=== PATIENT | male | born 1945 | race Caucasian/White ===

== ENCOUNTER 2021-09-09 20:39 | Inpatient (IN) | payer MEDICARE, BC ==
--- NOTE | 2021-09-09 20:31 | EDM.PDOC ---
ED HPI GENERAL MEDICAL PROBLEM - General Chief Complaint: General Stated Complaint: AMBULANCE Time Seen by Provider: 09/09/21 20:22 - History of Present Illness INITIAL COMMENTS - FREE TEXT/NARRATIVE: EMS was called for a pt who passed out while sitting at the dining table and fell forward hitting his head. He did tell EMS he was feeling a little lightheaded prior the event. He remembers sitting at the table and was a little confused after. LOC was about 4 minutes per report. He did cut his forehead open on the table. He does take coumadin and has a history of atrial fibrillation. Pt went to CT on arrival. Pt reports he was short of breath prior to fainting. He has been getting more short of breath over the last several months and has been struggling even when walking with his walker. He has known parkinsons and denies any weakness or speech changes from his baseline. He recently had a UTI but thinks he has finished his medicine. He denies any fevers or chills. No recent illnesses. No pain other than his head where he has a laceration from hitting it. - Related Data Allergies Allergy/AdvReac Type Severity Reaction Status Date / Time latex Allergy Rash Verified 09/09/21 21:24 Home Meds: Home Meds Acetaminophen 1,000 mg PO Q6HR PRN 09/09/21 [History] Carbidopa/Levodopa [Sinemet 25-100 mg Tablet] 2 each PO ASDIRECTED 09/09/21 [History] Carbidopa/Levodopa/Entacapone [Carbidopa-Levodopa 50 mg-Enta] 1 each PO DAILY 09/09/21 [History] Carboxymethylcell/Hypromellose [GenTeal 0.25-0.3% Gel Drops] 1 drop EYEBOTH BEDTIME 09/09/21 [History] Carboxymethylcellulose Sodium [Refresh Tears 0.5%] 1 drop EYEBOTH QID 09/09/21 [History] Donepezil [Aricept] 10 mg PO BEDTIME 09/09/21 [History] Furosemide [Lasix] 40 mg PO DAILY 09/09/21 [History] Loperamide [Imodium] 2 mg PO Q8HR PRN 09/09/21 [History] Magnesium Hydroxide [Milk of Magnesia] 30 ml PO DAILY PRN 09/09/21 [History] Melatonin 5 mg PO BEDTIME 09/09/21 [History] Metoprolol Tartrate 25 mg PO BID 09/09/21 [History] Nitroglycerin 0.4 mg SL ASDIRECTED PRN 09/09/21 [History] Ondansetron [Zofran ODT] 4 mg PO Q8HR PRN 09/09/21 [History] Phytonadione [Vitamin K] 100 mcg PO DAILY 09/09/21 [History] QUEtiapine [SEROquel] 50 mg PO BEDTIME 09/09/21 [History] Tamsulosin HCl [Flomax] 0.8 mg PO DAILY 09/09/21 [History] Warfarin [Coumadin] 2.5 mg PO .MWF 09/09/21 [History] Warfarin [Coumadin] 5 mg PO .TUETHURSATSUN 09/09/21 [History] lisinopriL [Lisinopril] 40 mg PO DAILY 09/09/21 [History] polyethylene glycoL 3350 [MiraLAX] 17 gm PO ASDIRECTED 09/09/21 [History] ED ROS GENERAL - Review of Systems Review Of Systems: Comprehensive ROS is negative, except as noted in HPI. ED EXAM, GENERAL - Physical Exam Exam: See Below Exam Limited By: No Limitations General Appearance: Alert, No Apparent Distress Eye Exam: Bilateral Eye: Normal Inspection Ears: Normal External Exam Throat/Mouth: No Airway Compromise Head: Normocephalic, Other (facial laceration) Neck: Normal Inspection, Supple, Non-Tender Respiratory/Chest: No Respiratory Distress, Lungs Clear, Normal Breath Sounds, No Accessory Muscle Use Cardiovascular: Normal Peripheral Pulses, Regular Rate, Rhythm, Systolic Murmur GI/Abdominal: Soft, No Distention (Male) Exam: Deferred Rectal (Males) Exam: Deferred Back Exam: Normal Inspection Extremities: Normal Inspection, Normal Range of Motion, No Pedal Edema Neurological: Alert, Oriented, Normal Cognition Psychiatric: Normal Affect, Normal Mood Skin Exam: Warm, Dry, Other (laceration on his right forehead in his eyebrow about 3.4 cm in length and gaping about 1.5 cm with a y-extension on the medial aspect, laceration on the top of his head about 1.5 cm in length) Lymphatic: No Adenopathy ED GENERAL MEDICAL PROCEDURES - Laceration/Wound Repair Right Face Lac/wound length in cm: 3.4 (with 0.75 y-extension) Appearance: Subcutaneous Distal NVT: Neuro & Vascular Intact Anesthetic Type: Local Local Anesthesia - Lidocaine (Xylocaine): 1% with EPI Local Anesthetic Volume: 5cc Skin Prep: Chlorhexidine (Hibiciens) Exploration/Debridement/Repair: Wound Explored, Explored to Base, No Foreign Material Found Closed with: Sutures Suture Size: 6-0 # of Sutures: 6 (5 in long section, 1 in y-extension) Suture Type: Nylon, Interrupted, Simple Sterile Dressing Applied: Nurse Tetanus Status Addressed: Yes Complications: No [place] Lac/wound length in cm: 1.5 Appearance: Subcutaneous Distal NVT: Neuro & Vascular Intact Anesthetic Type: Local Local Anesthesia - Lidocaine (Xylocaine): 1% with EPI Local Anesthetic Volume: 2cc Skin Prep: Chlorhexidine (Hibiciens) Exploration/Debridement/Repair: Wound Explored, Explored to Base, No Foreign Material Found Closed with: Sutures Suture Size: 3-0 # of Sutures: 1 Suture Type: Nylon, Interrupted, Simple Sterile Dressing Applied: Nurse Tetanus Status Addressed: Yes Complications: No #1 Interpretation EKG Date: 09/09/21 Time: 20:38 Rhythm: A-Fib [place]: RAD-Right [place] Deviation P-Wave: Variable QRS: Normal ST-T: Normal QT: Normal #2 Interpretation EKG Date: 09/10/21 Time: 00:32 Rhythm: A-Fib [place]: RAD-Right [place] Deviation P-Wave: Variable QRS: Normal ST-T: Normal QT: Normal Comparison: No Change Course - Vital Signs Last Recorded V/S: Last Vital Signs Temp 96.9 F 09/09/21 20:30 Pulse 72 09/09/21 22:17 Resp 14 09/09/21 22:17 BP 148/109 H 09/09/21 22:17 Pulse Ox 93 L 09/09/21 22:17 - Orders/Labs/Meds Orders: Active Orders 24 hr Category Date Time Status CULTURE BLOOD [BC] Stat Lab 09/09/21 22:09 Received CULTURE BLOOD [BC] Stat Lab 09/09/21 22:13 Received Ozuna [CORONAVIRUS COVID-19 PARAMJIT] [MOLEC] Stat Lab 09/10/21 00:59 Ordered PTT,PARTIAL THROMBOPLSTIN TIME [COAG] Q6H Lab 09/10/21 00:45 Ordered PTT,PARTIAL THROMBOPLSTIN TIME [COAG] Q6H Lab 09/10/21 06:45 Ordered PTT,PARTIAL THROMBOPLSTIN TIME [COAG] Q6H Lab 09/10/21 12:45 Ordered PTT,PARTIAL THROMBOPLSTIN TIME [COAG] Q6H Lab 09/10/21 18:45 Ordered PTT,PARTIAL THROMBOPLSTIN TIME [COAG] Q6H Lab 09/11/21 00:45 Ordered PTT,PARTIAL THROMBOPLSTIN TIME [COAG] Q6H Lab 09/11/21 06:45 Ordered PTT,PARTIAL THROMBOPLSTIN TIME [COAG] Q6H Lab 09/11/21 12:45 Ordered TROPONIN I HIGH SENSITIVITY [CHEM] Timed Lab 09/10/21 06:00 Ordered UA RFX LUCINDA AND CULT IF INDIC [URIN] Stat Lab 09/09/21 20:47 Ordered Heparin Sodium/0.45% NaCl [Heparin 25,000 Units in 1/2 Med 09/10/21 00:45 Active NS 500 ML] 25,000 units in 500 ml IV TITRATE Sodium Chloride 0.9% [Normal Saline] 1,000 ml Med 09/09/21 21:00 Active IV ASDIRECTED Blood Culture x2 Reflex Set [OM.PC] Stat Oth 09/09/21 20:46 Ordered Medication Orders Sodium Chloride (Normal Saline) 1,000 mls @ 500 mls/hr IV ASDIRECTED FATMATA Last Admin: 09/09/21 20:59 Dose: 500 mls/hr Documented by: CHERY Heparin Sodium/Sodium Chloride (Heparin 25,000 Units In 1/2 Ns 500 Ml) 25,000 units in 500 mls @ 20 mls/hr IV TITRATE FATMATA; Protocol Last Admin: 09/10/21 00:41 Dose: 1,000 units/hr, 20 mls/hr Documented by: FREDY Cosigned by: CHERY Labs: Laboratory Tests 09/09/21 09/09/21 09/09/21 Range/Units 20:51 20:51 20:51 WBC 5.4 (5.0-10.0) 10^3/uL RBC 4.17 L (4.6-6.2) 10^6/uL Hgb 14.4 (14.0-18.0) g/dL Hct 42.3 (40.0-54.0) % MCV 101.4 H (80-100) fL MCH 34.5 H (27.0-34.0) pg MCHC 34.0 (33.0-35.0) g/dL Plt Count 157 (150-450) 10^3/uL Neut % (Auto) 79.9 H (42.2-75.2) % Lymph % (Auto) 9.1 L (20.5-50.1) % Hendry % (Auto) 9.9 H (2-8) % Eos % (Auto) 0.9 L (1.0-3.0) % Baso % (Auto) 0.2 (0.0-1.0) % PT 23.4 H (9.0-12.0) SEC INR 2.4 H (0.9-1.2) APTT 29.7 (22.0-34.0) SEC Sodium 141 (136-145) mmol/L Potassium 3.8 (3.5-5.1) mmol/L Chloride 104 (98-107) mmol/L Carbon Dioxide 20 L (21-32) mmol/L Anion Gap 20.8 H (7-13) mEq/L BUN 26 H (7-18) mg/dL Creatinine 1.31 H (0.70-1.30) mg/dL Est Cr Clr Drug Dosing 52.65 mL/min Estimated GFR (MDRD) 53 BUN/Creatinine Ratio 19.8 (No establ ref range) Glucose 181 H (70-99) mg/dL Lactic Acid (0.4-2.0) mmol/L Calcium 8.5 (8.5-10.1) mg/dL Total Bilirubin 0.9 (0.2-1.0) mg/dL AST 16 (15-37) U/L ALT 7 L (16-63) U/L Alkaline Phosphatase 173 H (46-116) U/L Troponin I High Sens 149 H* (<=76) pg/mL Total Protein 7.4 (6.4-8.2) g/dL Albumin 3.4 (3.4-5.0) g/dL Globulin 4.0 Albumin/Globulin Ratio 0.9 09/09/21 09/09/21 09/09/21 Range/Units 20:51 23:55 23:55 WBC (5.0-10.0) 10^3/uL RBC (4.6-6.2) 10^6/uL Hgb (14.0-18.0) g/dL Hct (40.0-54.0) % MCV (80-100) fL MCH (27.0-34.0) pg MCHC (33.0-35.0) g/dL Plt Count (150-450) 10^3/uL Neut % (Auto) (42.2-75.2) % Lymph % (Auto) (20.5-50.1) % Hendry % (Auto) (2-8) % Eos % (Auto) (1.0-3.0) % Baso % (Auto) (0.0-1.0) % PT (9.0-12.0) SEC INR (0.9-1.2) APTT (22.0-34.0) SEC Sodium (136-145) mmol/L Potassium (3.5-5.1) mmol/L Chloride (98-107) mmol/L Carbon Dioxide (21-32) mmol/L Anion Gap (7-13) mEq/L BUN (7-18) mg/dL Creatinine (0.70-1.30) mg/dL Est Cr Clr Drug Dosing mL/min Estimated GFR (MDRD) BUN/Creatinine Ratio (No establ ref range) Glucose (70-99) mg/dL Lactic Acid 5.5 H* 2.1 H* (0.4-2.0) mmol/L Calcium (8.5-10.1) mg/dL Total Bilirubin (0.2-1.0) mg/dL AST (15-37) U/L ALT (16-63) U/L Alkaline Phosphatase (46-116) U/L Troponin I High Sens 1312 H* (<=76) pg/mL Total Protein (6.4-8.2) g/dL Albumin (3.4-5.0) g/dL Globulin Albumin/Globulin Ratio Meds: Medications Generic Name Dose Route Start Last Admin Trade Name Freq PRN Reason Stop Dose Admin Sodium Chloride 1,000 mls @ 500 mls/hr 09/09/21 21:00 09/09/21 20:59 Normal Saline IV 500 mls/hr ASDIRECTED FATMATA Administration Heparin Sodium/Sodium Chloride 25,000 units in 500 mls @ 20 mls/hr 09/10/21 00:45 09/10/21 00:41 Heparin 25,000 Units In 1/2 Ns 500 Ml IV 1,000 units/hr TITRATE FATMATA 20 mls/hr Administration Protocol 1,000 UNITS/HR Discontinued Medications Generic Name Dose Route Start Last Admin Trade Name Denvre PRN Reason Stop Dose Admin Aspirin 324 mg 09/09/21 20:53 09/09/21 20:58 Aspirin 81 Mg Tab.Chew PO 09/09/21 20:54 324 mg ONETIME ONE Administration Clopidogrel Bisulfate 300 mg 09/10/21 00:32 09/10/21 00:48 Clopidogrel 75 Mg Tab PO 09/10/21 00:33 300 mg ONETIME ONE Administration Heparin Sodium (Porcine) 4,000 units 09/10/21 00:31 09/10/21 00:40 Heparin Sodium 5,000 Units/Ml Vial IVPUSH 09/10/21 00:32 4,000 units .BOLUS ONE Administration Lidocaine/Epinephrine 20 ml 09/09/21 22:57 09/09/21 23:05 Lidocaine 1% With Epinephrine 1:100,000 20 Ml Mdv INJECT 09/09/21 22:58 20 ml ONETIME ONE Administration Metoclopramide HCl 10 mg 09/09/21 20:32 09/09/21 20:40 Metoclopramide 10 Mg/2 Ml Sdv IVPUSH 09/09/21 20:33 10 mg ONETIME ONE Administration Metoclopramide HCl Confirm 09/09/21 20:32 09/09/21 20:40 Metoclopramide 10 Mg/2 Ml Sdv Administered 09/09/21 20:33 Not Given Dose 10 mg .ROUTE .STK-MED ONE Nitroglycerin 0.4 mg 09/09/21 20:53 09/09/21 20:58 Nitroglycerin 0.4 Mg Tab.Sl SL 09/09/21 20:54 0.4 mg ONETIME ONE Administration - Re-Assessments/Exams Free Text/Narrative Re-Assessment/Exam: Patient reported new onset pressure like chest pain in the center of his chest. He was given aspirin and nitroglycerin and reports his pain is getting better. 09/09/21 21:29 CT head report shows age-indeterminate burst fracture of C1. Previous C-spine imaging reviewed from 2007, not present at that time. Pt reports he has always had problems with his neck. CT c-spine ordered. Pt reports his chest pain is gone. Troponin came back slightly elevated at 149 and lactic acid was 5.5. 09/09/21 21:45 Repeat troponin increased to 1312. Heparin bolus and drip as well as plavix orde red. EKG still without ST changes. Contacted [facility] who put him on the waiting list for NSTEMI. [facility] hospitalist contacted and declines admission at time stating he needs to be transferred out. [facility] transfer line reports all facilities are full. Spoke with Neurosurgery psychologist educational from [facility] about his C1 fracture on CT. He agrees is it chronic and notes that his neck has been manipulated in the recent past without complication and feels like it is stable and he can be removed from the c-collar. Pt hemodynamically stable. Will remain in the ER while awaiting transfer. 09/10/21 00:46 [facility] hospitalist called back. Informed there are no beds available in the [facility] [place]. Case discussed and pt was accepted for admission. 09/10/21 03:16 Departure - Departure Time of Disposition: 03:18 Disposition: Admitted As Inpatient 66 Condition: Serious Clinical Impression: NSTEMI (non-ST elevated myocardial infarction) - Discharge Information *PRESCRIPTION DRUG MONITORING PROGRAM REVIEWED*: Not Applicable *COPY OF PRESCRIPTION DRUG MONITORING REPORT IN PATIENT HARSHAL: Not Applicable Forms: ED Department Discharge Sepsis Event Note (ED) - Focused Exam Vital Signs: Vital Signs Temp Pulse Resp BP BP Pulse Ox 09/09/21 22:17 72 14 148/109 H 93 L 09/09/21 20:58 149/95 H 09/09/21 20:30 96.9 F 82 20 149/104 H 95 - My Orders Last 24 Hours: My Active Orders 09/09/21 20:46 Blood Culture x2 Reflex Set [OM.PC] Stat 09/09/21 20:47 UA RFX LUCINDA AND CULT IF INDIC [URIN] Stat 09/09/21 21:00 Sodium Chloride 0.9% [Normal Saline] 1,000 ml IV ASDIRECTED 09/09/21 22:09 CULTURE BLOOD [BC] Stat 09/09/21 22:13 CULTURE BLOOD [BC] Stat 09/10/21 00:45 PTT,PARTIAL THROMBOPLSTIN TIME [COAG] Q6H Heparin Sodium/0.45% NaCl [Heparin 25,000 Units in 1/2 NS 500 ML] 25,000 units in 500 ml IV TITRATE 09/10/21 00:59 Ozuna [CORONAVIRUS COVID-19 PARAMJIT] [MOLEC] Stat 09/10/21 06:00 TROPONIN I HIGH SENSITIVITY [CHEM] Timed 09/10/21 06:45 PTT,PARTIAL THROMBOPLSTIN TIME [COAG] Q6H 09/10/21 12:45 PTT,PARTIAL THROMBOPLSTIN TIME [COAG] Q6H 09/10/21 18:45 PTT,PARTIAL THROMBOPLSTIN TIME [COAG] Q6H 09/11/21 00:45 PTT,PARTIAL THROMBOPLSTIN TIME [COAG] Q6H 09/11/21 06:45 PTT,PARTIAL THROMBOPLSTIN TIME [COAG] Q6H 09/11/21 12:45 PTT,PARTIAL THROMBOPLSTIN TIME [COAG] Q6H - Assessment/Plan Last 24 Hours: My Active Orders 09/09/21 20:46 Blood Culture x2 Reflex Set [OM.PC] Stat 09/09/21 20:47 UA RFX LUCINDA AND CULT IF INDIC [URIN] Stat 09/09/21 21:00 Sodium Chloride 0.9% [Normal Saline] 1,000 ml IV ASDIRECTED 09/09/21 22:09 CULTURE BLOOD [BC] Stat 09/09/21 22:13 CULTURE BLOOD [BC] Stat 09/10/21 00:45 PTT,PARTIAL THROMBOPLSTIN TIME [COAG] Q6H Heparin Sodium/0.45% NaCl [Heparin 25,000 Units in 1/2 NS 500 ML] 25,000 units in 500 ml IV TITRATE 09/10/21 00:59 Ozuna [CORONAVIRUS COVID-19 PARAMJIT] [MOLEC] Stat 09/10/21 06:00 TROPONIN I HIGH SENSITIVITY [CHEM] Timed 09/10/21 06:45 PTT,PARTIAL THROMBOPLSTIN TIME [COAG] Q6H 09/10/21 12:45 PTT,PARTIAL THROMBOPLSTIN TIME [COAG] Q6H 09/10/21 18:45 PTT,PARTIAL THROMBOPLSTIN TIME [COAG] Q6H 09/11/21 00:45 PTT,PARTIAL THROMBOPLSTIN TIME [COAG] Q6H 09/11/21 06:45 PTT,PARTIAL THROMBOPLSTIN TIME [COAG] Q6H 09/11/21 12:45 PTT,PARTIAL THROMBOPLSTIN TIME [COAG] Q6H
[~2021-09-09 20:39] MED LIST: Metoclopramide 10 MG/2 ML SDV IVPUSH ONE; Metoclopramide 10 MG/2 ML SDV ONE
[2021-09-09] MEDS ORDERED: Nitroglycerin 0.4 MG Tab.SL SL ONE (20:53)
[2021-09-09] MEDS ORDERED: Aspirin 81 MG Tab.Chew PO ONE (20:53)
[2021-09-09] MEDS ORDERED: Sodium Chloride 0.9% 1,000 ML IV SCH (21:00)
--- NOTE | 2021-09-09 21:01 | CT ---
PROCEDURE INFORMATION: Exam: CT Head Without Contrast Exam date and time: 09/09/2021 8:27 PM Age: 76 years old Clinical indication: Other: Fell forward out of chair--hit head, altered mentation; Additional info: Unresponsive episode, blood thinner TECHNIQUE: Imaging protocol: Computed tomography of the head without contrast. Radiation optimization: All CT scans at this facility use at least one of these dose optimization techniques: automated exposure control; mA and/or kV adjustment per patient size (includes targeted exams where dose is matched to clinical indication); or iterative reconstruction. Other technique: STROKE PROTOCOL was implemented. COMPARISON: No relevant prior studies available. FINDINGS: Brain: There is mild amount of scattered areas of hypoattenuation of the supratentorial white matter, most likely secondary to microvascular ischemic changes. No acute intracranial hemorrhage. Cerebral ventricles: No ventriculomegaly. Paranasal sinuses: Visualized sinuses are unremarkable. No fluid levels. Mastoid air cells: Visualized mastoid air cells are well aerated. 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 There is an age-indeterminate burst fracture of C1 vertebral body which is incompletely assessed on this examination Soft tissues: Unremarkable. IMPRESSION: No acute intracranial process. Age-indeterminate burst fracture of C1. A CT of the cervical spine is advised to further characterize, especially given history of trauma. ASSESSMENT: ASPECTS ([facility] Stroke Program Early CT Score) is 10.
[2021-09-09 21:21] LABS: PTT,PARTIAL THROMBOPLSTIN TIME 29.7 SEC (22.0-34.0)
[2021-09-09 21:24] LABS: ANION GAP 20.8 mEq/L (7-13)
--- NOTE | 2021-09-09 21:36 | CR ---
PROCEDURE INFORMATION: Exam: XR Chest Exam date and time: 09/09/2021 9:15 PM Age: 76 years old Clinical indication: Other: Syncope; Additional info: Fainting TECHNIQUE: Imaging protocol: XR of the chest. Views: 1 view. COMPARISON: No relevant prior studies available. FINDINGS: Lungs: There is diffuse mild nonspecific prominence of the subpleural pulmonary interstitium. No focal consolidation. Pleural spaces: Unremarkable. No pleural effusion. No pneumothorax. Heart/Mediastinum: There is cardiomegaly Bones/joints: Unremarkable. IMPRESSION: Interstitial prominence is nonspecific, possibly representing bronchitis. Cardiomegaly
--- NOTE | 2021-09-09 22:20 | CT ---
PROCEDURE INFORMATION: Exam: CT Cervical Spine Without Contrast Exam date and time: 09/09/2021 9:57 PM Age: 76 years old Clinical indication: Other: Rad was concerned about c1 off the head scan; Additional info: C1 fracture TECHNIQUE: Imaging protocol: Computed tomography images of the cervical spine without contrast. Radiation optimization: All CT scans at this facility use at least one of these dose optimization techniques: automated exposure control; mA and/or kV adjustment per patient size (includes targeted exams where dose is matched to clinical indication); or iterative reconstruction. COMPARISON: CT Head wo Cont 09/09/2021 8:27 PM FINDINGS: Bones/joints: No acute fracture. 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 Flattening of lateral masses of C1, left greater than right with resultant basilar invagination. Grade 1 anterolisthesis C5 on C6. No traumatic dislocation. Discs/Spinal canal/Neural foramina: No significant spinal stenosis. IMPRESSION: No acute fracture or dislocation. 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
[2021-09-09] MEDS ORDERED: Lidocaine 1% with EPINEPHrine 1:100,000 20 ML MDV INJECT ONE (22:57)
[2021-09-10] MEDS ORDERED: Heparin Sodium 5,000 Units/ML Vial IVPUSH ONE (00:31)
[2021-09-10] MEDS ORDERED: Clopidogrel 75 MG Tab PO ONE (00:32)
[2021-09-10] MEDS ORDERED: Heparin Sodium/0.45% NaCl 25,000 UNITS/500 ML BAG IV SCH (00:45)
[2021-09-10] MEDS ORDERED: Ondansetron 4 MG Tab.DIS PO PRN (04:33)
[2021-09-10] MEDS ORDERED: Loperamide 2 MG Cap PO PRN (04:33)
[2021-09-10] MEDS ORDERED: Nitroglycerin 0.4 MG Tab.SL SL PRN (04:33)
[2021-09-10] MEDS ORDERED: Magnesium Hydroxide 400 MG/5 ML Susp 30 ML Cup PO PRN (04:33)
[2021-09-10] MEDS ORDERED: Acetaminophen 500 MG Tab PO PRN (04:33)
[2021-09-10] MEDS ORDERED: atorvaSTATin 20 MG Tab PO ONE (04:38)
[2021-09-10] MEDS ORDERED: Docusate Sodium 100 MG Cap PO PRN (04:42)
[2021-09-10] MEDS ORDERED: Bisacodyl 5 MG Tab PO PRN (04:42)
[2021-09-10] MEDS ORDERED: Ondansetron 4 MG/2 ML SDV IVPUSH PRN (04:42)
--- NOTE | 2021-09-10 04:57 | PCM.HP ---
H&P History of Present Illness - General Date of Service: 09/10/21 Admit Problem/Dx: Admission Diagnosis/Problem Admission Diagnosis/Problem NSTEMI, initial episode of care Source of Information: Provider (ER) History Limitations: Reports: Other (pt is sleeping) - History of Present Illness Initial Comments - Free Text/Narative: As per ER , EMS was called for a pt who passed out while sitting at the dining table and fell forward hitting his head. He did tell EMS he was feeling a little lightheaded prior the event. He remembers sitting at the table and was a little confused after. LOC was about 4 minutes per report. He did cut his forehead open on the table. He does take coumadin and has a history of atrial fibrillation. Pt went to CT on arrival. Pt reported he was shorted of breath prior to fainting. He has been getting more short of breath over the last several months and has been struggling even when walking with his walker. He has known parkinsons and denies any weakness or speech changes from his baseline. He recently had a UTI but thinks he has finished his medicine. He denies any fevers or chills. No recent illnesses. No pain other than his head where he has a laceration from hitting it. Patient reported new onset pressure like chest pain in the center of his chest. He was given aspirin and nitroglycerin and his pain improved. CT head report shows age-indeterminate burst fracture of C1. Previous C-spine imaging reviewed from 2007, not present at that time. Pt reports he has always had problems with his neck. CT c-spine ordered. Troponin came back slightly elevated at 149 and lactic acid was 5.5. Repeat troponin increased to 1312. Heparin bolus and drip as well as plavix ordered by ER. EKG still without ST changes. [facility] was contacted by ER who put him on the waiting list for NSTEMI. [facility] transfer line reported to ER that all facilities are full. Neurosurgery web consultant from [facility] was contacted by ER about his C1 fracture on CT. It was felt that it is chronic and the c-collar was removed Pt had two laceration to his head and they were sutured by ER. Pt remained hemodynamically stable in the ER and was accepted for admission awaiting beds available in the [facility].. - Related Data Allergies/Adverse Reactions: Allergies Allergy/AdvReac Type Severity Reaction Status Date / Time latex Allergy Rash Verified 09/09/21 21:24 Home Medications: Home Meds Acetaminophen 1,000 mg PO Q6HR PRN 09/09/21 [History] Carbidopa/Levodopa [Sinemet 25-100 mg Tablet] 2 each PO ASDIRECTED 09/09/21 [History] Carbidopa/Levodopa/Entacapone [Carbidopa-Levodopa 50 mg-Enta] 1 each PO DAILY 09/09/21 [History] Carboxymethylcell/Hypromellose [GenTeal 0.25-0.3% Gel Drops] 1 drop EYEBOTH BEDTIME 09/09/21 [History] Carboxymethylcellulose Sodium [Refresh Tears 0.5%] 1 drop EYEBOTH QID 09/09/21 [History] Donepezil [Aricept] 10 mg PO BEDTIME 09/09/21 [History] Furosemide [Lasix] 40 mg PO DAILY 09/09/21 [History] Loperamide [Imodium] 2 mg PO Q8HR PRN 09/09/21 [History] Magnesium Hydroxide [Milk of Magnesia] 30 ml PO DAILY PRN 09/09/21 [History] Melatonin 5 mg PO BEDTIME 09/09/21 [History] Metoprolol Tartrate 25 mg PO BID 09/09/21 [History] Nitroglycerin 0.4 mg SL ASDIRECTED PRN 09/09/21 [History] Ondansetron [Zofran ODT] 4 mg PO Q8HR PRN 09/09/21 [History] Phytonadione [Vitamin K] 100 mcg PO DAILY 09/09/21 [History] QUEtiapine [SEROquel] 50 mg PO BEDTIME 09/09/21 [History] Tamsulosin HCl [Flomax] 0.8 mg PO DAILY 09/09/21 [History] Warfarin [Coumadin] 2.5 mg PO .MWF 09/09/21 [History] Warfarin [Coumadin] 5 mg PO .TUETHURSATSUN 09/09/21 [History] lisinopriL [Lisinopril] 40 mg PO DAILY 09/09/21 [History] polyethylene glycoL 3350 [MiraLAX] 17 gm PO ASDIRECTED 09/09/21 [History] Past Medical History HEENT History: Reports: Hard of Hearing Cardiovascular History: Reports: Afib, CAD, High Cholesterol, Hypertension, Other (See Below) Other Cardiovascular History: Mitral Valve Insufficiency. Chronic anti-coag use Respiratory History: Reports: Sleep Apnea Genitourinary History: Reports: BPH Musculoskeletal History: Reports: Other (See Below) Other Musculoskeletal History: Intervertbral disc w/radiculopathy Neurological History: Reports: Parkinson's, Other (See Below) Other Neuro History: Dementia Psychiatric History: Reports: Dementia Dermatologic History: Reports: Other (See Below) Other Dermatologic History: Dermatitis Social & Family History - Family History Family Medical History: Unobtainable - Tobacco Use Tobacco Use Status *Q: Unknown Ever Used Tobacco - Recreational Drug Use Recreational Drug Use: No H&P Review of Systems - Review of Systems: Review Of Systems: Unable To Obtain Reason Not Obtained: Pt is sleeping , exhusted form last night events Exam - Exam Exam: See Below - Vital Signs Vital Signs: Last Vital Signs Temp 98.3 F 09/10/21 03:28 Pulse 70 09/10/21 03:28 Resp 16 09/10/21 03:28 BP 152/93 H 09/10/21 03:28 Pulse Ox 99 09/10/21 04:42 Weight: 219 lb - Exam Quality Assessment: Supplemental Oxygen General: Other (comfortable, no distress) Neck: No: JVD Lungs: Clear to Auscultation, Normal Respiratory Effort Cardiovascular: Irregular Rhythm GI/Abdominal Exam: Soft, Non-Tender (Male) Exam: Deferred Rectal (Males) Exam: Deferred Extremities: No Pedal Edema Skin: Warm, Dry, Other (sutured laceration to scalp) Neuro Extensive - Mental Status: Alert, Oriented x3 - Patient Data Lab Results Last 24 hrs: Laboratory Results - last 24 hr 09/09/21 09/09/21 09/09/21 Range/Units 20:51 20:51 20:51 WBC 5.4 (5.0-10.0) 10^3/uL RBC 4.17 L (4.6-6.2) 10^6/uL Hgb 14.4 (14.0-18.0) g/dL Hct 42.3 (40.0-54.0) % MCV 101.4 H (80-100) fL MCH 34.5 H (27.0-34.0) pg MCHC 34.0 (33.0-35.0) g/dL Plt Count 157 (150-450) 10^3/uL Neut % (Auto) 79.9 H (42.2-75.2) % Lymph % (Auto) 9.1 L (20.5-50.1) % [place] % (Auto) 9.9 H (2-8) % Eos % (Auto) 0.9 L (1.0-3.0) % Baso % (Auto) 0.2 (0.0-1.0) % PT 23.4 H (9.0-12.0) SEC INR 2.4 H (0.9-1.2) APTT 29.7 (22.0-34.0) SEC Sodium 141 (136-145) mmol/L Potassium 3.8 (3.5-5.1) mmol/L Chloride 104 (98-107) mmol/L Carbon Dioxide 20 L (21-32) mmol/L Anion Gap 20.8 H (7-13) mEq/L BUN 26 H (7-18) mg/dL Creatinine 1.31 H (0.70-1.30) mg/dL Est Cr Clr Drug Dosing 52.65 mL/min Estimated GFR (MDRD) 53 BUN/Creatinine Ratio 19.8 (No establ ref range) Glucose 181 H (70-99) mg/dL Lactic Acid (0.4-2.0) mmol/L Calcium 8.5 (8.5-10.1) mg/dL Total Bilirubin 0.9 (0.2-1.0) mg/dL AST 16 (15-37) U/L ALT 7 L (16-63) U/L Alkaline Phosphatase 173 H (46-116) U/L Troponin I High Sens 149 H* (<=76) pg/mL Total Protein 7.4 (6.4-8.2) g/dL Albumin 3.4 (3.4-5.0) g/dL Globulin 4.0 Albumin/Globulin Ratio 0.9 Urine Color (YELLOW) Urine Appearance (CLEAR) Urine pH (5.0-9.0) Ur Specific [place] (1.005-1.030) Urine Protein (NEGATIVE) Urine Glucose (UA) (NEGATIVE) Urine Ketones (NEGATIVE) Urine Occult Blood (NEGATIVE) Urine Nitrite (NEGATIVE) Urine Bilirubin (NEGATIVE) Urine Urobilinogen (0.2-1.0) mg/dL Ur Leukocyte Esterase (NEGATIVE) Urine RBC (0-5) /HPF Urine WBC (0-5/HPF) /HPF Ur Epithelial Cells (NOT SEEN) /HPF Amorphous Sediment (NOT SEEN) /HPF Urine Bacteria (0-FEW/HPF) /HPF Granular Casts (Auto) Fine Granular Casts (NOT SEEN) /LPF Urine Mucus (NOT SEEN) /LPF SARS CoV-2 RNA Rapid PARAMJIT (NEGATIVE) 09/09/21 09/09/21 09/09/21 Range/Units 20:51 23:55 23:55 WBC (5.0-10.0) 10^3/uL RBC (4.6-6.2) 10^6/uL Hgb (14.0-18.0) g/dL Hct (40.0-54.0) % MCV (80-100) fL MCH (27.0-34.0) pg MCHC (33.0-35.0) g/dL Plt Count (150-450) 10^3/uL Neut % (Auto) (42.2-75.2) % Lymph % (Auto) (20.5-50.1) % [place] % (Auto) (2-8) % Eos % (Auto) (1.0-3.0) % Baso % (Auto) (0.0-1.0) % PT (9.0-12.0) SEC INR (0.9-1.2) APTT (22.0-34.0) SEC Sodium (136-145) mmol/L Potassium (3.5-5.1) mmol/L Chloride (98-107) mmol/L Carbon Dioxide (21-32) mmol/L Anion Gap (7-13) mEq/L BUN (7-18) mg/dL Creatinine (0.70-1.30) mg/dL Est Cr Clr Drug Dosing mL/min Estimated GFR (MDRD) BUN/Creatinine Ratio (No establ ref range) Glucose (70-99) mg/dL Lactic Acid 5.5 H* 2.1 H* (0.4-2.0) mmol/L Calcium (8.5-10.1) mg/dL Total Bilirubin (0.2-1.0) mg/dL AST (15-37) U/L ALT (16-63) U/L Alkaline Phosphatase (46-116) U/L Troponin I High Sens 1312 H* (<=76) pg/mL Total Protein (6.4-8.2) g/dL Albumin (3.4-5.0) g/dL Globulin Albumin/Globulin Ratio Urine Color (YELLOW) Urine Appearance (CLEAR) Urine pH (5.0-9.0) Ur Specific [place] (1.005-1.030) Urine Protein (NEGATIVE) Urine Glucose (UA) (NEGATIVE) Urine Ketones (NEGATIVE) Urine Occult Blood (NEGATIVE) Urine Nitrite (NEGATIVE) Urine Bilirubin (NEGATIVE) Urine Urobilinogen (0.2-1.0) mg/dL Ur Leukocyte Esterase (NEGATIVE) Urine RBC (0-5) /HPF Urine WBC (0-5/HPF) /HPF Ur Epithelial Cells (NOT SEEN) /HPF Amorphous Sediment (NOT SEEN) /HPF Urine Bacteria (0-FEW/HPF) /HPF Granular Casts (Auto) Fine Granular Casts (NOT SEEN) /LPF Urine Mucus (NOT SEEN) /LPF SARS CoV-2 RNA Rapid PARAMJIT (NEGATIVE) 09/10/21 09/10/21 Range/Units 03:30 03:45 WBC (5.0-10.0) 10^3/uL RBC (4.6-6.2) 10^6/uL Hgb (14.0-18.0) g/dL Hct (40.0-54.0) % MCV (80-100) fL MCH (27.0-34.0) pg MCHC (33.0-35.0) g/dL Plt Count (150-450) 10^3/uL Neut % (Auto) (42.2-75.2) % Lymph % (Auto) (20.5-50.1) % [place] % (Auto) (2-8) % Eos % (Auto) (1.0-3.0) % Baso % (Auto) (0.0-1.0) % PT (9.0-12.0) SEC INR (0.9-1.2) APTT (22.0-34.0) SEC Sodium (136-145) mmol/L Potassium (3.5-5.1) mmol/L Chloride (98-107) mmol/L Carbon Dioxide (21-32) mmol/L Anion Gap (7-13) mEq/L BUN (7-18) mg/dL Creatinine (0.70-1.30) mg/dL Est Cr Clr Drug Dosing mL/min Estimated GFR (MDRD) BUN/Creatinine Ratio (No establ ref range) Glucose (70-99) mg/dL Lactic Acid (0.4-2.0) mmol/L Calcium (8.5-10.1) mg/dL Total Bilirubin (0.2-1.0) mg/dL AST (15-37) U/L ALT (16-63) U/L Alkaline Phosphatase (46-116) U/L Troponin I High Sens (<=76) pg/mL Total Protein (6.4-8.2) g/dL Albumin (3.4-5.0) g/dL Globulin Albumin/Globulin Ratio Urine Color Dark yellow (YELLOW) Urine Appearance Slightly cloudy (CLEAR) Urine pH 6.0 (5.0-9.0) Ur Specific [place] >= 1.030 (1.005-1.030) Urine Protein 100 H (NEGATIVE) Urine Glucose (UA) Negative (NEGATIVE) Urine Ketones Trace H (NEGATIVE) Urine Occult Blood Trace-intact H (NEGATIVE) Urine Nitrite Negative (NEGATIVE) Urine Bilirubin Negative (NEGATIVE) Urine Urobilinogen 0.2 (0.2-1.0) mg/dL Ur Leukocyte Esterase Small H (NEGATIVE) Urine RBC 5-10 H (0-5) /HPF Urine WBC 50-75 H (0-5/HPF) /HPF Ur Epithelial Cells Occasional (NOT SEEN) /HPF Amorphous Sediment Few (NOT SEEN) /HPF Urine Bacteria Few (0-FEW/HPF) /HPF Granular Casts (Auto) Occasional Fine Granular Casts Few H (NOT SEEN) /LPF Urine Mucus Few H (NOT SEEN) /LPF SARS CoV-2 RNA Rapid PARAMJIT Negative (NEGATIVE) Result Diagrams: 09/09/21 20:51 09/09/21 20:51 Imaging Impressions Last 24 hrs: ECG X 2 reviewed> Afib with no ST elevation. reports of CXR and Ct brain and CT cervical spine: were reviewed Problem List Initiated/Reviewed/Updated: No Orders Last 24hrs: Active Orders 24 hr Category Date Time Status Admission Diagnosis [ADT] Routine ADT 09/10/21 03:18 Ordered Admission Status [Patient Status] [ADT] Routine ADT 09/10/21 03:18 Active Cardiac Monitoring [RC] CONTINUOUS Care 09/10/21 04:43 Ordered EKG 12 Lead [EKG Documentation Completion] [RC] DAILY Care 09/10/21 07:00 Ordered Height and Weight [RC] DAILY Care 09/10/21 04:42 Ordered Intake and Output [RC] QSHIFT Care 09/10/21 04:43 Ordered Oxygen Therapy [RC] PRN Care 09/10/21 04:42 Ordered Up With Assistance [RC] ASDIRECTED Care 09/10/21 04:42 Ordered VTE/DVT Education [RC] PER UNIT ROUTINE Care 09/10/21 04:42 Ordered Vital Signs [RC] Q4H Care 09/10/21 04:42 Ordered Heart Healthy Diet [DIET] Diet 09/10/21 Breakfast Ordered BASIC METABOLIC PANEL,BMP [CHEM] Routine Lab 09/11/21 04:47 Ordered CBC WITH AUTO DIFF [HEME] DAILY Lab 09/11/21 04:46 Ordered CULTURE BLOOD [BC] Stat Lab 09/09/21 22:09 Received CULTURE BLOOD [BC] Stat Lab 09/09/21 22:13 Received CULTURE URINE [RM] Stat Lab 09/10/21 03:45 Received INR,PT,PROTHROMBIN TIME [COAG] AM Lab 09/11/21 05:11 Ordered INR,PT,PROTHROMBIN TIME [COAG] AM Lab 09/12/21 05:11 Ordered INR,PT,PROTHROMBIN TIME [COAG] AM Lab 09/13/21 05:11 Ordered INR,PT,PROTHROMBIN TIME [COAG] AM Lab 09/14/21 05:11 Ordered INR,PT,PROTHROMBIN TIME [COAG] AM Lab 09/15/21 05:11 Ordered INR,PT,PROTHROMBIN TIME [COAG] AM Lab 09/16/21 05:11 Ordered INR,PT,PROTHROMBIN TIME [COAG] AM Lab 09/17/21 05:11 Ordered INR,PT,PROTHROMBIN TIME [COAG] Routine Lab 09/10/21 04:35 Ordered PTT,PARTIAL THROMBOPLSTIN TIME [COAG] Q6H Lab 09/10/21 00:45 Ordered PTT,PARTIAL THROMBOPLSTIN TIME [COAG] Q6H Lab 09/10/21 06:45 Ordered PTT,PARTIAL THROMBOPLSTIN TIME [COAG] Q6H Lab 09/10/21 12:45 Ordered PTT,PARTIAL THROMBOPLSTIN TIME [COAG] Q6H Lab 09/10/21 18:45 Ordered PTT,PARTIAL THROMBOPLSTIN TIME [COAG] Q6H Lab 09/11/21 00:45 Ordered PTT,PARTIAL THROMBOPLSTIN TIME [COAG] Q6H Lab 09/11/21 06:45 Ordered PTT,PARTIAL THROMBOPLSTIN TIME [COAG] Q6H Lab 09/11/21 12:45 Ordered TROPONIN I HIGH SENSITIVITY [CHEM] AM Lab 09/10/21 05:11 Ordered TROPONIN I HIGH SENSITIVITY [CHEM] AM Lab 09/11/21 05:11 Ordered TROPONIN I HIGH SENSITIVITY [CHEM] AM Lab 09/12/21 05:11 Ordered TROPONIN I HIGH SENSITIVITY [CHEM] AM Lab 09/13/21 05:11 Ordered TROPONIN I HIGH SENSITIVITY [CHEM] Timed Lab 09/10/21 06:00 Ordered Acetaminophen [Tylenol Extra Strength] Med 09/10/21 04:33 Ordered 1,000 mg PO Q6HR PRN Aspirin Med 09/10/21 21:00 Ordered 81 mg PO BEDTIME Carbidopa/Levodopa [Sinemet 25-100 mg] Med 09/10/21 04:45 Ordered 2 each PO ASDIRECTED Carbidopa/Levodopa/Entacapone [Carbidopa-Levodopa 50 mg Med 09/10/21 09:00 Ordered -Enta] 1 each PO DAILY Carboxymethylcellulose Sodium [Refresh Tears 0.5%] Med 09/10/21 09:00 Ordered 1 drop EYEBOTH QID Clopidogrel [Plavix] Med 09/10/21 09:00 Ordered 75 mg PO DAILY Docusate Sodium [Colace] Med 09/10/21 04:42 Ordered 100 mg PO BID PRN Donepezil [Aricept] Med 09/10/21 21:00 Ordered 10 mg PO BEDTIME Furosemide [Lasix] Med 09/10/21 09:00 Ordered 40 mg PO DAILY Heparin Sodium/0.45% NaCl [Heparin 25,000 Units in 1/2 Med 09/10/21 00:45 Active NS 500 ML] 25,000 units in 500 ml IV TITRATE Loperamide [Imodium] Med 09/10/21 04:33 Ordered 2 mg PO Q8HR PRN Magnesium Hydroxide [Milk of Magnesia] Med 09/10/21 04:33 Ordered 30 ml PO DAILY PRN Melatonin [Melatonin] Med 09/10/21 21:00 Ordered 5 mg PO BEDTIME Metoprolol Tartrate [Lopressor] Med 09/10/21 09:00 Ordered 25 mg PO BID Nitroglycerin [Nitrostat] Med 09/10/21 04:33 Ordered 0.4 mg SL ASDIRECTED PRN Ondansetron [Zofran ODT] Med 09/10/21 04:33 Ordered 4 mg PO Q8HR PRN Ondansetron [Zofran] Med 09/10/21 04:42 Ordered 4 mg IVPUSH Q6H PRN Phytonadione [Vitamin K] Med 09/10/21 09:00 Ordered 100 mcg PO DAILY QUEtiapine [SEROqueL] Med 09/10/21 21:00 Ordered 50 mg PO BEDTIME Sodium Chloride 0.9% [Normal Saline] 1,000 ml Med 09/09/21 21:00 Active IV ASDIRECTED Tamsulosin [Flomax] Med 09/10/21 09:00 Ordered 0.8 mg PO DAILY Warfarin [Coumadin] Med 09/10/21 04:45 Ordered 2.5 mg PO .MWF Warfarin [Coumadin] Med 09/10/21 04:45 Ordered 5 mg PO .NILAM atorvaSTATin [Lipitor] Med 09/11/21 21:00 Ordered 20 mg PO BEDTIME bisacodyL [Dulcolax] Med 09/10/21 04:42 Ordered 5 mg PO DAILY PRN lisinopriL [Lisinopril] Med 09/10/21 09:00 Ordered 40 mg PO DAILY polyethylene glycoL 3350 [MiraLAX] Med 09/10/21 04:45 Ordered 17 gm PO ASDIRECTED Blood Culture x2 Reflex Set [OM.PC] Stat Oth 09/09/21 20:46 Ordered Medication Orders Acetaminophen (Acetaminophen 500 Mg Tab) 1,000 mg PO Q6HR PRN PRN Reason: Pain Aspirin (Aspirin 81 Mg Tab.Chew) 81 mg PO BEDTIME [facility] Atorvastatin Calcium (Atorvastatin 20 Mg Tab) 20 mg PO BEDTIME [facility] Bisacodyl (Bisacodyl 5 Mg Tab) 5 mg PO DAILY PRN PRN Reason: Constipation Carbidopa/Levodopa (Carbidopa/Levodopa 25-100 Mg Tab) 2 tab PO 0700,0930,1200,1430,1700 [facility] Clopidogrel Bisulfate (Clopidogrel 75 Mg Tab) 75 mg PO DAILY [facility] Docusate Sodium (Docusate Sodium 100 Mg Cap) 100 mg PO BID PRN PRN Reason: Constipation Donepezil HCl (Donepezil 10 Mg Tab) 10 mg PO BEDTIME [facility] Furosemide (Furosemide 40 Mg Tab) 40 mg PO DAILY [facility] Sodium Chloride (Normal Saline) 1,000 mls @ 500 mls/hr IV ASDIRECTED [facility] Last Admin: 09/09/21 20:59 Dose: 500 mls/hr Documented by: CHERY Heparin Sodium/Sodium Chloride (Heparin 25,000 Units In 1/2 Ns 500 Ml) 25,000 units in 500 mls @ 20 mls/hr IV TITRATE [facility]; Protocol Last Admin: 09/10/21 00:41 Dose: 1,000 units/hr, 20 mls/hr Documented by: FREDY Cosigned by: CHERY Lisinopril (Lisinopril 20 Mg Tab) 40 mg PO DAILY [facility] Loperamide HCl (Loperamide 2 Mg Cap) 2 mg PO Q8HR PRN PRN Reason: Diarrhea Magnesium Hydroxide (Magnesium Hydroxide 400 Mg/5 Ml Susp 30 Ml Cup) 30 ml PO DAILY PRN PRN Reason: Constipation Metoprolol Tartrate (Metoprolol Tartrate 25 Mg Tab) 25 mg PO BID [facility] Nitroglycerin (Nitroglycerin 0.4 Mg Tab.Sl) 0.4 mg SL ASDIRECTED PRN PRN Reason: Chest Pain Non-Formulary Medication (Carbidopa/Levodopa/Entacapone [Carbidopa-Levodopa 50 Mg-Enta]) 1 each PO DAILY [facility] Non-Formulary Medication (Carboxymethylcellulose Sodium [Refresh Tears 0.5%]) 1 drop EYEBOTH QID [facility] Non-Formulary Medication (Melatonin [Melatonin]) 5 mg PO BEDTIME [facility] Non-Formulary Medication (Phytonadione [Vitamin K]) 100 mcg PO DAILY [facility] Ondansetron HCl (Ondansetron 4 Mg Tab.Dis) 4 mg PO Q8HR PRN PRN Reason: Nausea/Vomiting Ondansetron HCl (Ondansetron 4 Mg/2 Ml Sdv) 4 mg IVPUSH Q6H PRN PRN Reason: Nausea/Vomiting Polyethylene Glycol (Polyethylene Glycol 3350 Powder 17 Gm Packet) 17 gm PO Q48H [facility] Quetiapine Fumarate (Quetiapine 25 Mg Tab) 50 mg PO BEDTIME [facility] Tamsulosin HCl (Tamsulosin 0.4 Mg Cap.Er) 0.8 mg PO DAILY [facility] Warfarin Sodium (Warfarin 2.5 Mg Tab) 2.5 mg PO .MWF [facility] Warfarin Sodium (Warfarin 2.5 Mg Tab) 5 mg PO .NILAM [facility] Assessment/Plan Comment:: Syncope NSTEMI scalp laceration chronic A fib Chronic C FX HTN Pt is already on Aspirin. to add Plavix. DC heparin since pt is already has th eraputic INR. Add Atorvastatin. Pt is already on Metoprolol and ACEI re EKG and Trop labs in am Code status to be discussed with pt once he is awake. Awaiting transfer Total time 65 min
[2021-09-10] MEDS: Carbidopa/Levodopa 25-100 MG Tab PO SCH ×5 (08:11→17:56)
[2021-09-10] MEDS ORDERED: CARBIDOPA PO SCH (09:00)
[2021-09-10] MEDS ORDERED: Clopidogrel 75 MG Tab PO SCH (09:00)
[2021-09-10] MEDS ORDERED: Tamsulosin 0.4 MG Cap.ER PO SCH (09:00)
[2021-09-10] MEDS ORDERED: PHYTONADIONE 100 MCG PO SCH (09:00)
[2021-09-10] MEDS ORDERED: ENTACAPONE PO SCH (09:00)
[2021-09-10] MEDS ORDERED: Lisinopril 20 MG Tab PO SCH (09:00)
[2021-09-10] MEDS ORDERED: Furosemide 40 MG Tab PO SCH (09:00)
[2021-09-10] MEDS ORDERED: LEVODOPA PO SCH (09:00)
[2021-09-10] MEDS ORDERED: Metoprolol Tartrate 25 MG Tab PO SCH (09:00)
[2021-09-10] MEDS: Polyvinyl Alcohol 1.4% Ophth Soln 15 ML Bottle EYEBOTH SCH ×3 (09:30→17:55)
--- NOTE | 2021-09-10 11:32 | PCM.SN.2 ---
- Free Text/Narrative Note: Discharge summary, Please see H/P from this morning No chest pain,No SOB, no neck pain. No weakness. Chest CTA Heart:RRR Abd: soft, NT Moving all ext. Lacerations to head are nicely sutured. Neck supple . No pain and full range of motion. A/p NSTEMI: h/o CAD , S/p Stent. Continue same. Awating transfoer Increase Metoprol Called [facility]: no bed at present. Awaiting [facility] Time Documentation
[2021-09-10] MEDS ORDERED: Metoprolol Tartrate 25 MG Tab PO ONE (11:45)
[2021-09-10] MEDS ORDERED: Warfarin 5 MG Tab PO SCH (14:00)
[2021-09-10] MEDS ORDERED: CARBOXYMETHYLCELL EYEBOTH SCH (21:00)
[2021-09-10] MEDS ORDERED: Metoprolol Tartrate 50 MG Tab PO SCH (21:00)
[2021-09-10] MEDS ORDERED: HYPROMELLOSE EYEBOTH SCH (21:00)
[2021-09-10] MEDS ORDERED: QUEtiapine 25 MG Tab PO SCH (21:00)
[2021-09-10] MEDS ORDERED: [UNRECOGNIZED DRUG - OTHER] EYEBOTH SCH (21:00)
[2021-09-10] MEDS ORDERED: Aspirin 81 MG Tab.Chew PO SCH (21:00)
[2021-09-10] MEDS ORDERED: Melatonin [Melatonin] 5 MG Tablet PO SCH (21:00)
[2021-09-10] MEDS ORDERED: Donepezil 10 MG Tab PO SCH (21:00)
[2021-09-11] MEDS ORDERED: Polyethylene Glycol 3350 Powder 17 GM Packet PO SCH (09:00)
[2021-09-11] MEDS ORDERED: Warfarin 2.5 MG Tab PO SCH (14:00)
[2021-09-11] MEDS ORDERED: atorvaSTATin 20 MG Tab PO SCH (21:00)
== END 2021-09-10 19:47 | DRG 281 ==
LOC: DL.ED 20:39 → DL.MS 09-10 03:18
PROVIDERS: ADMIT Internal Medicine; ATTEND Internal Medicine
DX: I21.4 Non-ST elevation (NSTEMI) myocardial infarction (principal); I48.20 Chronic atrial fibrillation, unspecified; I25.10 Atherosclerotic heart disease of native coronary artery without angina pectoris; Z20.822 Contact with and (suspected) exposure to COVID-19; H91.90 Unspecified hearing loss, unspecified ear; E78.00 Pure hypercholesterolemia, unspecified; G47.30 Sleep apnea, unspecified; N40.0 Benign prostatic hyperplasia without lower urinary tract symptoms; G20 Parkinson's disease; F02.80 Dementia in other diseases classified elsewhere, unspecified severity, without behavioral disturbance, psychotic disturbance, mood disturbance, and anxiety; Z91.040 Latex allergy status; Z79.01 Long term (current) use of anticoagulants; Z79.899 Other long term (current) drug therapy; Z95.5 Presence of coronary angioplasty implant and graft
CPT/HCPCS: 12001; 12013; 36415; 70450; 71045; 72125; 80053; 81001; 83605; 84484; 85025; 85610; 85730; 87040; 87086; 87088; 87186; 93005; 96365; 96366; 96375; 99285-25; A9270-GY; J1644; J2765; J7030; U0002